=== PATIENT | female | born 1995 | race Two or more races ===

== ENCOUNTER 2024-01-24 18:47 | Emergency (ER) | payer BC ==
[~2024-01-24] VITALS: Ht 160 cm; Wt 79.2 kg
[2024-01-24] MEDS ORDERED: BENZ-38 PO (19:43)
[2024-01-24] MEDS ORDERED: PRED20TA PO (19:43)
[2024-01-24] MEDS: benzonatate 100mg capsule PO ONE (19:53)
[2024-01-24] MEDS: predniSONE 20 mg tablet PO ONE (19:53)
[2024-01-24 19:58] VITALS: BP 118/68; PULSE 86; RESP 18; TEMP 98.3; O2SAT 96
== END 2024-01-24 20:00 | disposition home or self-care (01) ==
LOC: ER 18:48
DX: J22 Unspecified acute lower respiratory infection (principal); Z79.52 Long term (current) use of systemic steroids
CPT/HCPCS: 71045; 99283; J7512

== ENCOUNTER 2024-02-03 18:49 | Emergency (ER) | payer BC ==
[~2024-02-03] VITALS: Ht 160 cm; Wt 75.7 kg
[~2024-02-03 18:49] MED LIST: BENZ-38 PO
[2024-02-03 18:56] VITALS: BP 117/71
[2024-02-03 20:28] VITALS: PULSE 102; RESP 16; O2SAT 97
[2024-02-03] MEDS: ipratropium/albuterol 3ml nebule NEB ONE (20:28)
[2024-02-03 20:36] VITALS: PULSE 114; RESP 16
[2024-02-03] MEDS ORDERED: IPRA3AMP31 NEB (20:55)
[2024-02-03 20:56] VITALS: TEMP 99.3
== END 2024-02-03 20:57 | disposition home or self-care (01) ==
LOC: ER 18:50
DX: J22 Unspecified acute lower respiratory infection (principal); J11.1 Influenza due to unidentified influenza virus with other respiratory manifestations; J45.909 Unspecified asthma, uncomplicated; Z79.899 Other long term (current) drug therapy
CPT/HCPCS: 71045; 87502; 87503; 94640; 94760; 99284